=== PATIENT | male | born 1940 | race Caucasian/White ===

== ENCOUNTER 2020-07-19 08:53 | Day surgery (SDC) | payer MEDICARE ==
[~2020-07-19] VITALS: Ht 172.7 cm; Wt 79.1 kg
[~2020-07-19 08:53] MED LIST: NYSTRIT TOP; TERA5 PO
--- NOTE | 2020-07-19 10:25 | NUR ---
PT AMBULATES TO [facility]. History, Chart, Medications and Allergies reviewed before start of procedure. Lungs clear T/O to Auscultation. NPO SINCE 2199 LAST NOC. Patient reports completing Chlorhexadine shower X2 prior to admission to hospital.
--- NOTE | 2020-07-19 13:55 | NUR ---
REDCIEVED PATIENT INTO STEP VSS WANT S TO LEAVE CALLED RIDE AND WROTE UP DISCHARGE INSTRUCITONS.
--- NOTE | 2020-07-19 14:15 | NUR ---
Discharge instructions reviewed with patient. Patient verbalizes understanding. Copy given to patient to take home. Patient States Post-Procedure ride home has been arranged. Discharged via wheelchair to private car for ride home.
--- NOTE | 2020-07-20 14:11 | NUR ---
07/20/20 1411 Dominga Hernandez VERIFICATIONS: EDIT CHART.
== END 2020-07-19 23:55 | disposition home or self-care (01) ==
LOC: ORSCMMR 08:53 → ORD 10:30 → ORSCMMR 23:55
PROVIDERS: Surgery
PROC: 0YU50JZ Supplement Right Inguinal Region with Synthetic Substitute, Open Approach (ICD-10-PCS; principal; 2020-07-19 10:30)
DX: K40.90 Unilateral inguinal hernia, without obstruction or gangrene, not specified as recurrent (principal); I48.0 Paroxysmal atrial fibrillation; F17.210 Nicotine dependence, cigarettes, uncomplicated; Z79.899 Other long term (current) drug therapy
CPT/HCPCS: C1781; J0690; J1100; J1885; J2250; J2405; J2704; J3010; J7120